=== PATIENT | male | born 1995 | race African-American/Black ===

== ENCOUNTER 2018-10-06 00:23 | Emergency (ER) | payer SELFPAY ==
--- NOTE | 2018-10-06 01:42 | ER Document Report ---
ED ENT - General Chief Complaint: Sore Throat Stated Complaint: SORE THROAT Time Seen by Provider: 10/06/18 01:41 Mode of Arrival: Ambulatory Information source: Patient Notes: HISTORY OF PRESENT ILLNESS: Patient is a 23-year-old male with no significant past medical history who presents with pain and swelling to the throat for the past 3 days. Location: Posterior throat Onset: 3 days ago Provocation: Swallowing Quality: Tightness, throbbing Radiation: None Severity: Moderate Timing: Instant Associated symptoms: No fever or chills, no cough or congestion, no vomiting or diarrhea REVIEW OF SYSTEMS: CONSTITUTIONAL : Denies fever or chills, no sweats. Denies recent illness. EENT: Positive for throat pain and swelling. Denies nasal or sinus congestion. CARDIOVASCULAR: Denies chest pain. RESPIRATORY: Denies cough, cold, or chest congestion. Denies shortness of breath, difficulty breathing, or wheezing. GASTROINTESTINAL: Denies abdominal pain. Denies nausea, vomiting, or diarrhea. Denies constipation. GENITOURINARY: Denies difficulty urinating, painful urination, burning, frequency, or blood in urine. MUSCULOSKELETAL: Denies neck or back pain or joint pain or swelling. SKIN: Denies rash or skin lesions. HEMATOLOGIC : Denies easy bruising or bleeding. LYMPHATIC: Denies swollen, enlarged glands. NEUROLOGICAL: Denies altered mental status or loss of consciousness. Denies headache. Denies weakness or paralysis or loss of use of either side. Denies problems with gait or speech. Denies sensory or motor loss. PSYCHIATRIC: Denies anxiety or stress or depression. All other systems reviewed and negative. PHYSICAL EXAMINATION: GENERAL: Well-appearing, well-nourished and in no acute distress. HEAD: Atraumatic, normocephalic. No scalp deformity, depression, or crepitance. EYES: Pupils are 3 mm and equal/round/reactive to light, extraocular movements intact, sclera anicteric, conjunctiva are normal. ENT: Significant bilateral and symmetric tonsillar hypertrophy with erythema and bilateral exudates, uvula is midline, no elevation of the tongue. Moist mucous membranes. No tonsil hypertrophy. NECK: Normal range of motion, supple without lymphadenopathy. LUNGS: Breath sounds present, equal, and clear to auscultation bilaterally. No wheezes, rales, or rhonchi. HEART: Regular rate and rhythm without murmurs, rubs, or gallops. 2+ peripheral pulses. Normal capillary refill. ABDOMEN: Soft, nontender, nondistended. Normoactive bowel sounds. No guarding, no rebound. No masses appreciated. BACK: Normal contour, no midline tenderness. Rectal exam deferred. GENITAL: Deferred. EXTREMITIES: Normal range of motion, no pitting or edema. No cyanosis. NEUROLOGICAL: No focal neurological deficits. Moves all extremities spontaneously and on command. PSYCH: Normal mood, normal affect. No suicidal thoughts/ideations. No homocidal thoughts/ideations. No hallucinations. SKIN: Warm, dry, normal turgor, no rashes or lesions noted. ASSESSMENT AND PLAN: This patient is a 23-year-old male who presents with pain and swelling most consistent with viral versus bacterial pharyngitis. 1. Will give oral 2% viscous lidocaine for pain control as well as intramuscular injection of Decadron. 2. Will discharge home with return precautions and ENT follow-up along with oral antibiotics. Patient voices both understanding and agreeing with plan. TRAVEL OUTSIDE OF THE [place] IN LAST 30 DAYS: No - Related Data Allergies/Adverse Reactions: No Known Allergies Allergy (Unverified 10/06/18 00:31) Past Medical History - General Information source: Patient - Social History Smoking Status: Unknown if Ever Smoked Chew tobacco use (# tins/day): No Frequency of alcohol use: None Drug Abuse: None Lives with: Family Family History: Reviewed & Not Pertinent Patient has suicidal ideation: No Patient has homicidal ideation: No - Past Medical History Cardiac Medical History: Reports: None Pulmonary Medical History: Reports: None EENT Medical History: Reports: None Neurological Medical History: Reports: None Endocrine Medical History: Reports: None Renal/ Medical History: Reports: None. Denies: Hx Peritoneal Dialysis Malignancy Medical History: Reports None GI Medical History: Reports: None Musculoskeletal Medical History: Reports None Skin Medical History: Reports None Psychiatric Medical History: Reports: None Traumatic Medical History: Reports: None Infectious Medical History: Reports: None Surgical Hx: Negative Past Surgical History: Reports: None - Immunizations Immunizations up to date: Yes History of Influenza Vaccine for 04/2017 - 09/2017 Season: Unknown Physical Exam - Vital signs Vitals: Temp Pulse Resp BP Pulse Ox 99.9 F 83 17 116/71 96 10/06/18 00:45 10/06/18 00:45 10/06/18 00:45 10/06/18 00:45 10/06/18 00:45 Course - Vital Signs Vital signs: Temp Pulse Resp BP Pulse Ox 99.9 F 83 17 116/71 96 10/06/18 00:45 10/06/18 00:45 10/06/18 00:45 10/06/18 00:45 10/06/18 00:45 Discharge - Discharge Clinical Impression: Bacterial pharyngitis Condition: Good Disposition: HOME, SELF-CARE Instructions: Sore Throat ([facility]) Additional Instructions: You have been evaluated in the Emergency Department for pain and swelling in your throat that is likely related to a bacterial infection. While here, you were given pain medications and it is now safe to be discharged home. Please follow-up with an ENT physician as instructed in 2-3 days to be rechecked. Return to the Emergency Department if you experience worsening swelling, worsening pain, uncontrollable fevers, or any other concerning symptoms. Prescriptions: Hydrocodone/Acetaminophen [Hydrocodone-Acetamn 7.5-325/15] 10 ml PO Q6HP PRN #240 solution PRN Reason: For Pain Penicillin V Potassium [Penicillin Vk 500 mg Tablet] 500 mg PO QID #28 tablet Referrals: MENDY GIBSON MD [ACTIVE STAFF] - Follow up as needed Print Language: Occitan
[2018-10-06] MEDS ORDERED: DEXAMETHASONE SOD PHOS INJ 10 MG/1 ML VIAL IM ONE (02:02)
[2018-10-06] MEDS ORDERED: LIDOCAINE 2% VISCOUS SOLN 20 ML UDCUP PO ONE (02:02)
[2018-10-06 04:24] VITALS: BP 119/65
== END 2018-10-06 03:50 | disposition home or self-care (01) ==
LOC: ER 00:23
DX: J02.8 Acute pharyngitis due to other specified organisms (principal); B96.89 Other specified bacterial agents as the cause of diseases classified elsewhere
CPT/HCPCS: 99283; 96372; 87070; 87880; J3490; J1100